=== PATIENT | female | born 1980 | race Hispanic/Latino ===

== ENCOUNTER 2017-09-11 14:47 | Emergency (ER) | payer MEDICAID, OTHER ==
[2017-09-11] MEDS ORDERED: LIDOCAINE HCL 1% 20 ML VIAL ONE (15:50)
== END 2017-09-11 16:31 | disposition home or self-care (01) ==
LOC: EDH 14:47
DX: L02.811 Cutaneous abscess of head [any part, except face] (principal); I10 Essential (primary) hypertension; Z98.890 Other specified postprocedural states
CPT/HCPCS: 10060